=== PATIENT | male | born 1980 | race Hispanic/Latino ===

== ENCOUNTER 2018-07-21 08:40 | Emergency (ER) | payer SELFPAY ==
--- NOTE | 2018-07-21 09:49 | EDPHYS ---
Physician Documentation [facility] Name: Kiet Simms Age: 37 yrs Sex: Male : 1980 Arrival Date: 07/21/2018 Time: 08:46 Bed 8 Private MD: None, None ED Physician Danny Garcia HPI: 07/21 09:28 This 37 yrs old Male presents to ER via Ambulatory with complaints of Shoulder billy Pain. 09:28 The patient or guardian complains of decreased range of motion, pain, tenderness. left billy shoulder. Context: resulted from a fall, while walking, The patient experiences decreased range of motion, The patient reports no obvious deformity. Onset: The symptoms/episode began/occurred 1 day(s) ago. Modifying factors: the symptoms are alleviated by remaining still, The symptoms are aggravated by movement. Associated signs and symptoms: The patient has no apparent associated signs or symptoms. Severity of symptoms: At their worst the symptoms were moderate, in the emergency department the symptoms are unchanged. Treatment prior to arrival includes: no previous treatment. The patient has not experienced similar symptoms in the past. Historical: - Allergies: 08:52 No Known Allergies; ss - Home Meds: 08:52 None [Active]; ss - PMHx: 08:52 None; ss - PSHx: 08:52 None; ss - Immunization history:: Adult Immunizations up to date. - Social history:: Smoking status: Patient uses tobacco products, chewing tobacco. - Ebola Screening: : Patient denies exposure to infectious person Patient denies travel to an Ebola-affected area in the 21 days before illness onset. - Family history:: not pertinent. ROS: 09:28 Constitutional: Negative for fever, chills, and weight loss, Eyes: Negative for injury, billy pain, redness, and discharge, ENT: Negative for injury, pain, and discharge, Neck: Negative for injury, pain, and swelling, Cardiovascular: Negative for chest pain, palpitations, and edema, Respiratory: Negative for shortness of breath, cough, wheezing, and pleuritic chest pain, Abdomen/GI: Negative for abdominal pain, nausea, vomiting, diarrhea, and constipation, Back: Negative for injury and pain, : Negative for injury, bleeding, discharge, and swelling, Skin: Negative for injury, rash, and discoloration, Neuro: Negative for headache, weakness, numbness, tingling, and seizure, Endocrine: Negative for neck swelling, polydipsia, polyuria, polyphagia, and marked weight changes, Hematologic/Lymphatic: Negative for swollen nodes, abnormal bleeding, and unusual bruising. 09:28 MS/extremity: Positive for injury or acute deformity, decreased range of motion, pain, tenderness, of the anterior aspect of left shoulder. Exam: 09:28 Constitutional: This is a well developed, well nourished patient who is awake, alert, billy and in no acute distress. Head/Face: Normocephalic, atraumatic. Eyes: Pupils equal round and reactive to light, extra-ocular motions intact. Lids and lashes normal. Conjunctiva and sclera are non-icteric and not injected. Cornea within normal limits. Periorbital areas with no swelling, redness, or edema. ENT: Nares patent. No nasal discharge, no septal abnormalities noted. Tympanic membranes are normal and external auditory canals are clear. Oropharynx with no redness, swelling, or masses, exudates, or evidence of obstruction, uvula midline. Mucous membranes moist. Neck: Trachea midline, no thyromegaly or masses palpated, and no cervical lymphadenopathy. Supple, full range of motion without nuchal rigidity, or vertebral point tenderness. No Meningismus. Chest/axilla: Normal chest wall appearance and motion. Nontender with no deformity. No lesions are appreciated. Cardiovascular: Regular rate and rhythm with a normal S1 and S2. No gallops, murmurs, or rubs. Normal PMI, no JVD. No pulse deficits. Respiratory: Lungs have equal breath sounds bilaterally, clear to auscultation and percussion. No rales, rhonchi or wheezes noted. No increased work of breathing, no retractions or nasal flaring. Abdomen/GI: Soft, non-tender, with normal bowel sounds. No distension or tympany. No guarding or rebound. No evidence of tenderness throughout. Back: No spinal tenderness. No costovertebral tenderness. Full range of motion. Skin: Warm, dry with normal turgor. Normal color with no rashes, no lesions, and no evidence of cellulitis. Neuro: Awake and alert, GCS 15, oriented to person, place, time, and situation. Cranial nerves II-XII grossly intact. Motor strength 5/5 in all extremities. Sensory grossly intact. Cerebellar exam normal. Normal gait. Psych: Awake, alert, with orientation to person, place and time. Behavior, mood, and affect are within normal limits. 09:28 Musculoskeletal/extremity: Extremities: noted in the anterior aspect of left shoulder: decreased ROM, pain. Vital Signs: 08:50 Pulse 103; Resp 15; Temp 99.0(TE); Pulse Ox 100% on R/A; Weight 90.72 kg; Height 5 ft. ss 7 in. (170.18 cm); Pain 8/10; 08:55 BP 134 / 107 RA; ss 08:55 BP 143 / 102 RA; ss 10:22 BP 129 / 81; Pulse 87; Resp 18; Temp 97.9; Pulse Ox 99% on R/A; Pain 4/10; ph 08:50 Body Mass Index 31.32 (90.72 kg, 170.18 cm) ss MDM: 09:00 Patient medically screened. [facility] 09:34 Data reviewed: vital signs, nurses notes, radiologic studies, plain films. [facility] 07/21 09:20 Order name: Shoulder Left (2 View) XRAY [facility] 07/21 09:28 Order name: Sling; Complete Time: 09:48 [facility] 07/21 09:28 Order name: Ice pack; Complete Time: 09:48 [facility] Administered Medications: 09:48 Drug: Motrin 800 mg Route: PO; ph 10:23 Follow up: Response: No adverse reaction; Pain is decreased ph Disposition: 07/21/18 09:49 Discharged to Home. Impression: Fall due to bumping against object, Pain in left shoulder. - Condition is Stable. - Discharge Instructions: Joint Pain, Musculoskeletal Pain, Shoulder Pain, Shoulder Pain, [id number]. - Prescriptions for Ibuprofen 600 mg Oral Tablet - take 1 tablet by ORAL route every 6 hours As needed take with food; 21 tablet. Tylenol- Codeine #3 300-30 mg Oral Tablet - take 2 tablet by ORAL route every 6 hours As needed; 30 tablet. - Medication Reconciliation Form, Thank You Letter, Antibiotic Education, Prescription Opioid Use form. - Follow up: Private Physician; When: 2 - 3 days; Reason: Recheck today's complaints, Continuance of care, Re-evaluation by your physician. Follow up: Abran Hendricks MD; When: 2 - 3 days; Reason: Recheck today's complaints, Continuance of care, Re-evaluation by your physician. - Problem is new. - Symptoms have improved. Signatures: Dispatcher [employer] EDDanny Del Rosario MD MD cha Smirch, Shelby, RN RN ss Mariel Reed RN RN Corrections: (The following items were deleted from the chart) 09:49 09:49 07/21/2018 09:49 Discharged to Home. Impression: Fall due to bumping against billy object; Pain in left shoulder. Condition is Stable. Discharge Instructions: Joint Pain, Musculoskeletal Pain, Shoulder Pain, Shoulder Pain, [id number]. Prescriptions for Ibuprofen 600 mg Oral Tablet - take 1 tablet by ORAL route every 6 hours As needed take with food; 21 tablet, Tylenol-Codeine #3 300-30 mg Oral Tablet - take 2 tablet by ORAL route every 6 hours As needed; 30 tablet. and Forms are Medication Reconciliation Form, Thank You Letter, Antibiotic Education, Prescription Opioid Use. Follow up: Private Physician; When: 2 - 3 days; Reason: Recheck today's complaints, Continuance of care, Re-evaluation by your physician. Problem is new. Symptoms have improved. [facility] 10:23 09:49 07/21/2018 09:49 Discharged to Home. Impression: Fall due to bumping against ph object; Pain in left shoulder. Condition is Stable. Discharge Instructions: Joint Pain, Musculoskeletal Pain, Shoulder Pain, Shoulder Pain, [id number]. Prescriptions for Ibuprofen 600 mg Oral Tablet - take 1 tablet by ORAL route every 6 hours As needed take with food; 21 tablet, Tylenol-Codeine #3 300-30 mg Oral Tablet - take 2 tablet by ORAL route every 6 hours As needed; 30 tablet. and Forms are Medication Reconciliation Form, Thank You Letter, Antibiotic Education, Prescription Opioid Use. Follow up: Private Physician; When: 2 - 3 days; Reason: Recheck today's complaints, Continuance of care, Re-evaluation by your physician. Follow up: Abran Hendricks; When: 2 - 3 days; Reason: Recheck today's complaints, Continuance of care, Re-evaluation by your physician. Problem is new. Symptoms have improved. [facility]
--- NOTE | 2018-07-21 09:49 | ER ---
Nurse's Notes [facility] Name: Kiet Simms Age: 37 yrs Sex: Male : 1980 Arrival Date: 07/21/2018 Time: 08:46 Bed 8 Private MD: None, None Diagnosis: Fall due to bumping against object;Pain in left shoulder Presentation: 07/21 08:52 Presenting complaint: Patient states: L shoulder pain that began last night "stiff ss arming" the door. Transition of care: patient was not received from another setting of care. Onset of symptoms was July 20, 2018. Risk Assessment: Do you want to hurt yourself or someone else? Patient reports no desire to harm self or others. Initial Sepsis Screen: Does the patient meet any 2 criteria? No. Patient's initial sepsis screen is negative. Does the patient have a suspected source of infection? No. Patient's initial sepsis screen is negative. Care prior to arrival: None. 08:52 Method Of Arrival: Ambulatory ss 08:52 Acuity: NATALIE 4 ss Historical: - Allergies: 08:52 No Known Allergies; ss - Home Meds: 08:52 None [Active]; ss - PMHx: 08:52 None; ss - PSHx: 08:52 None; ss - Immunization history:: Adult Immunizations up to date. - Social history:: Smoking status: Patient uses tobacco products, chewing tobacco. - Ebola Screening: : Patient denies exposure to infectious person Patient denies travel to an Ebola-affected area in the 21 days before illness onset. - Family history:: not pertinent. Screenin:49 Abuse screen: Denies threats or abuse. Denies injuries from another. Nutritional ph screening: No deficits noted. Tuberculosis screening: No symptoms or risk factors identified. Fall Risk None identified. Assessment: 09:15 General: Appears in no apparent distress. uncomfortable, well groomed, Behavior is ph calm, cooperative, appropriate for age. Pain: Complains of pain in anterior aspect of left shoulder. Neuro: Level of Consciousness is awake, alert, obeys commands, Oriented to person, place, time, situation. Cardiovascular: Capillary refill < 3 seconds in bilateral fingers Patient's skin is warm and dry. Respiratory: Airway is patent Respiratory effort is even, unlabored. Derm: Skin is intact, is healthy with good turgor, Skin is pink, warm \\T\\ dry. Musculoskeletal: Circulation, motion, and sensation intact. Range of motion: limited in left shoulder no obvious deformity noted. 10:21 Reassessment: Patient appears in no apparent distress at this time. Patient and/or ph family updated on plan of care and expected duration. Pain level reassessed. Patient is alert, oriented x 3, equal unlabored respirations, skin warm/dry/pink. Pt reports that pain has improved after PO pain medication and sling, states " I was almost falling asleep in here." Pt d/c home w/ SO. Vital Signs: 08:50 Pulse 103; Resp 15; Temp 99.0(TE); Pulse Ox 100% on R/A; Weight 90.72 kg; Height 5 ft. ss 7 in. (170.18 cm); Pain 8/10; 08:55 BP 134 / 107 RA; ss 08:55 BP 143 / 102 RA; ss 10:22 BP 129 / 81; Pulse 87; Resp 18; Temp 97.9; Pulse Ox 99% on R/A; Pain 4/10; ph 08:50 Body Mass Index 31.32 (90.72 kg, 170.18 cm) ED Course: 08:46 Patient arrived in ED. sb2 08:47 None, None is Private Physician. sb2 08:50 Arm band placed on right wrist. ss 08:54 Triage completed. ss 09:00 Danny Garcia MD is Attending Physician. billy 09:22 Mariel Reed, RN is Primary Nurse. ph 09:35 Shoulder Left (2 View) XRAY In Process Unspecified. EDMS 09:49 Abran Hendricks MD is Referral Physician. billy 09:50 Patient has correct armband on for positive identification. Bed in low position. Call ph light in reach. Side rails up X 1. Ice pack to injury. 09:50 Sling applied to left arm. ph 10:20 No provider procedures requiring assistance completed. Patient did not have IV access ph during this emergency room visit. Administered Medications: 09:48 Drug: Motrin 800 mg Route: PO; ph 10:23 Follow up: Response: No adverse reaction; Pain is decreased ph Outcome: 09:49 Discharge ordered by . billy 10:23 Patient left the ED. ph 10:23 Discharged to home ambulatory. ph 10:23 Condition: good 10:23 Discharge instructions given to patient, Instructed on discharge instructions, follow up and referral plans. medication usage, Demonstrated understanding of instructions, follow-up care, medications, Prescriptions given X 2. Signatures: Dispatcher [employer] Danny Pugh MD MD cha Smirch, Shelby, RN RN Mariel Reed RN RN Chantel, Joy 2
[2018-07-21] MEDS ORDERED: IBUPROFEN 400 MG TAB ONE (09:53)
--- NOTE | 2018-07-21 10:09 | RAD REPORT ---
EXAM DESCRIPTION: RAD - Shoulder Left 2 View - 07/21/2018 9:36 am CLINICAL HISTORY: PAIN Trauma COMPARISON: No comparisons FINDINGS: No fracture or dislocation of the left shoulder is seen. No aggressive bone lesion.
== END 2018-07-21 10:23 | disposition home or self-care (01) ==
LOC: ER 08:40
DX: M25.512 Pain in left shoulder (principal); F17.220 Nicotine dependence, chewing tobacco, uncomplicated
CPT/HCPCS: 99284